=== PATIENT | male | born 1960 | race Caucasian/White ===

== ENCOUNTER 2024-02-01 09:57 | Emergency (ER) | payer OTHER, SELFPAY ==
[2024-02-01] VITALS (14 sets, daily range): BP systolic 97–179; BP diastolic 55–95; PULSE 72–96; RESP 14–20; TEMP 36.4–37; O2SAT 94–98; BMI 30.2
--- NOTE | 2024-02-01 10:10 | CT_ITS ---
CT RIGHT LOWER EXTREMITY WITH 3-D IMAGING CLINICAL INDICATION: right posterior thigh trauma TECHNIQUE: Axial CT images of the RIGHT lower extremity was performed with IV contrast material. Coronal and sagittal reformats were provided. RADIATION DOSAGE (If Supplied By Facility): CTDIvol = ( 15.44 ) mGy, DLP = ( 1371.28 ) mGycm COMPARISON: No relevant prior comparison study available FINDINGS: Bones: Osseous structures are normal without evidence of fracture or dislocation. No lytic or blastic osseous masses. Soft Tissues: There is a 4.8 cm x 6.3 cm x 6.6 cm soft tissue laceration/ulceration posterior to the biceps femoris long head muscle. There is evidence of soft tissue swelling and air within the biceps femoris muscle. This may be either due to infection versus air arising from the overlying laceration. There is also evidence of the fluid surrounding the medial adductor muscle group. There is evidence of subcutaneous soft tissue prominence with skin thickening. No radiopaque foreign body is seen at this time. CT/Extremity Lower WITH Contrast IMPRESSION: Large area of soft tissue laceration/ULCERATION posterior to the biceps femoris long head muscle with air within the soft tissues suggestive of possible infection versus communication with the overlying skin. Small amount of fluid collection surrounding the medial adductor muscle group. Diffuse increased edema in the subcutaneous fat and overlying skin thickening. No bony abnormality is seen at this time. No radiopaque foreign body is present. Electronically Signed: Keven Altman MD at 13:54 EDT ,
--- NOTE | 2024-02-01 10:12 | EX.ED.GENINJ ---
HPI History of Present Illness Chief Complaint: Laceration Informant: patient Onset/Context/Timing Onset: Days (8 days) Narrative Narrative: Susanne mendoza presents via private vehicle secondary to right lower extremity laceration that occurred 8 days ago. 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 He suffered extensive injuries to his right lower extremity. Multiple lacerations on the lower portion of the right leg are healing. Patient has a large laceration to the posterior right thigh that he presents today for. He states his family has been caring for it and took pictures of the wound. They sent it to a friend who is a doctor in [place] and they recommended he come in as there is exposed muscle. Patient states he has not been up ambulating on his leg since the time of injury. He denies having fever or chills. He does not take any medications on a regular basis. PFSH PFS Medical History no medical history no medical history Home Medications NK 02/01/24 [History Last Taken Unknown] Allergy/AdvReac Type Severity Reaction Status Date / Time No Known Allergies Allergy Verified 02/01/24 10:07 Surgical History Hx of hernia repair Social History Smoking Status: Never smoker ROS ROS ED Constitutional Constitutional ED: Denies chills or fever(s) Eyes Eyes: Denies change in vision ENT ENT ED: Denies rhinorrhea or sore throat Cardiovascular Cardiovascular: Denies chest pain or palpitations Respiratory/Chest Respiratory/Chest: Denies cough or dyspnea Gastrointestinal Gastrointestinal: Denies abdominal pain, nausea or vomiting Genitourinary Genitourinary ED: Denies dysuria Musculoskeletal Musculoskeletal: Reports extremity pain; Denies back pain Integumentary Reports other Details: Right lower extremity lacerations ; Denies Abrasions or rash Neurologic Neurologic: Denies headache(s), paresthesias or weakness Allergic/Immunologic Allergic/Immunologic ED: Denies lip swelling or urticaria EXAM Physical Exam Const Vital Signs: 02/01/24 09:59 02/01/24 10:04 02/01/24 11:04 Temperature 97.5 F L 97.5 F L 98 F Temperature Source Temporal Temporal Oral Pulse Rate 84 84 77 Respiratory Rate 16 16 18 Blood Pressure 129/85 H 129/85 H 125/77 H Blood Pressure Mean 99 99 93 Pulse Ox 95 94 97 Oxygen Delivery Method Room Air Room Air 02/01/24 11:57 02/01/24 13:00 02/01/24 14:00 Temperature 98.5 F 98.2 F 98.2 F Temperature Source Oral Temporal Oral Pulse Rate 72 81 82 Respiratory Rate 14 16 16 Blood Pressure 112/67 111/80 179/76 H Blood Pressure Mean 82 90 110 Pulse Ox 97 97 98 Oxygen Delivery Method Room Air Room Air Room Air 02/01/24 15:00 02/01/24 16:00 02/01/24 17:00 Temperature 98 F 98.3 F 98.1 F Temperature Source Oral Temporal Tympanic Pulse Rate 77 76 75 Respiratory Rate 18 16 20 H Blood Pressure 102/56 L 105/66 97/55 L Blood Pressure Mean 71 79 69 Pulse Ox 97 98 95 Oxygen Delivery Method Room Air Room Air Positive well nourished and well developed General Appearance ED: well developed HEENT atraumatic Eyes EOMs intact bilaterally Chest Wall inspection of chest normal and palpation of chest normal Resp normal respiratory effort and clear to auscultation bilaterally Cardio regular rhythm Rate: regular rate GI non-tender Palpation: soft Back/Spine normal to inspection Extremity Extremity Narrative: 12 x 7 cm gaping wound to the posterior right thigh with exposed muscle. Slight yellow-tinged discharge noted around the wound borders. No surrounding cellulitis. Over the lower portion of the right lower extremity there is healing abrasions and wounds with no sign of infection. Patient able to wiggle toes with strong distal pulses. Normal sensation noted. Neuro oriented x3 MDM MDM MDM Narrative Medical decision making narrative: IV line established. Labwork obtained to evaluate for leukocytosis, anemia, and electrolyte derangement. Blood and wound culture ordered. CT imaging of the right lower extremity will be obtained to evaluate the depth of injury and evaluate for any fluid collections. History & Record Review Discussion w/independent historian: Patient and Family Lab Data Attestation: I reviewed the patient's lab results. Labs: Laboratory Results - last 24 hr 02/01/24 10:10 WBC 8.6 RBC 4.65 Hgb 13.0 Hct 39.1 L MCV 84.1 MCH 28.0 MCHC 33.2 RDW Std Deviation 39.4 RDW Coeff of Vicki 12.9 Plt Count 342 MPV 9.4 Immature Gran % (Auto) 1.400 H Neut % (Auto) 63.9 Lymph % (Auto) 23.4 Anson % (Auto) 8.7 Eos % (Auto) 1.9 Baso % (Auto) 0.7 Absolute Neuts (auto) 5.5 Absolute Lymphs (auto) 2.02 Nucleated RBC % 0 PT 13.9 INR 1.1 APTT 27.7 Sodium 138 Potassium 4.3 Chloride 107 Carbon Dioxide 27.0 Anion Gap 4 L BUN 17 Creatinine 0.80 Estim Creat Clear Calc 101.76 Est GFR (MDRD) Af Amer 125 Est GFR (MDRD) Non-Af 103 BUN/Creatinine Ratio 21.3 H Glucose 112 H Lactic Acid 1.0 Calcium 9.1 Radiography Diagnostic Testing: Clinical Impression(s) from Imaging Studies Lower Extremity CT 02/01/24 10:10 IMPRESSION: Large area of soft tissue laceration/ULCERATION posterior to the biceps femoris long head muscle with air within the soft tissues suggestive of possible infection versus communication with the overlying skin. Small amount of fluid collection surrounding the medial adductor muscle group. Diffuse increased edema in the subcutaneous fat and overlying skin thickening. No bony abnormality is seen at this time. No radiopaque foreign body is present. Electronically Signed: Keven Altman MD at 13:54 EDT , Treatment and Re-Evaluation Narrative: White blood cell count is normal at 8.6 with 63% neutrophils. Hemoglobin is 13.0. Coags are unremarkable. Chemistry studies are normal. Lactic acid is normal at 1.0. CT scan of the right lower extremity with IV contrast is obtained. There is a large area of soft tissue laceration/ulceration posterior to the biceps for Avni long head muscle with air within the soft tissues suggestive of possible infection versus communication with overlying skin. Small amount of fluid collection is noted surrounding the medial adductor muscle group. Diffuse increased edema in the subcutaneous fat and overlying skin thickening. No radiopaque foreign body is present. Wound culture was obtained. Initial Gram stain reveals 3+ gram-positive cocci, 1+ gram-positive rods, 1+ white blood cells, no epithelial cells. In light of this patient is given a dose of Zosyn and vancomycin. I spoke with plastics. Dr. Ohara came to the emergency room and reviewed his images. There is air tracking into the muscle. She is concerned about this as well as possible muscle necrosis and does feel patient should be seen at a larger facility. [facility] does not have appropriate consultants available today and [facility] is not taking transfers. Family's next request was to go to [place]. Patient has been accepted in transfer to [facility]. Discharge Plan Triage Chief Complaint: Laceration ED Provider: Danni Butler Dx/Rx/DC Orders Clinical Impression: Laceration of leg Prescriptions: No Action NK Primary Care Provider: Care Physician,Sue Primary Referrals: NOT,DEFINED [Non-Staff] -
[2024-02-01 10:49] LABS: Absolute Lymphocyte Count 2.02 X10^3/uL (0.83-4.51); Absolute Neutrophil Count 5.5 X10^3/uL (2.0-7.7); Basophil# 0.06 X10^3/uL; Basophil% 0.7 % (0-1); Eosinophil# 0.16 X10^3/uL; Eosinophils% 1.9 % (0-5); Hematocrit 39.1 % (40-54); Lymphocyte # 2.02 X10^3/ul (0.83-4.51); Lymphocyte % 23.4 % (19-41); Mean Corp Hgb Conc 33.2 g/dL (32-36); Mean Corpuscular Volume 84.1 fL (80-94); Mean Platelet Vol. 9.4 fl (6.2-12.0); Monocyte# 0.75 X10^3/uL; Monocyte% 8.7 % (0-10); NRBC Flagged by Analyzer 0 % (0-5); Neutrophil # 5.51 X10^3/uL (2.7-7.7); Neutrophil % 63.9 % (47-70); Platelet Count 342 K/mm3 (150-450); RBC Distribution Width CV 12.9 % (11.6-14.6); RBC Distribution Width SD 39.4 fl (35.1-43.9); Red Blood Count 4.65 M/mm3 (4.6-6.2); White Blood Count 8.6 K/mm3 (4.4-11.0)
[2024-02-01 10:58] LABS: International Normalized Ratio 1.1; Prothrombin Time (Protime)PT. 13.9 SECONDS (11.7-14.9)
[2024-02-01 10:59] LABS: Partial Thromboplast Time 27.7 Seconds (24.1-36.2)
[2024-02-01 11:04] LABS: Anion Gap 4 (5-15); BUN 17 mg/dL (7-18); BUN/Creat Ratio 21.3 RATIO (10-20); Calcium,Total 9.1 mg/dL (8.5-10.1); Chloride 107 mmol/L (98-107); EST Glomerular Filtration Rate 103 mL/min (>60); Est Glom Filt Rate - Afr Amer 125 mL/min (>60); Estimated Creatinine Clearance 101.76 ml/min; Glucose 112 mg/dL (74-106); Potassium 4.3 mmol/L (3.5-5.1); Sodium Level 138 mmol/L (136-145)
[2024-02-01] MEDS: 0.9% Normal Saline (1000mL) 1,000 ML 150 ML IV (11:25)
[2024-02-01] MEDS: Piperacil/Tazobactam 3.375 GM in 0.9% Normal Saline (50mL MB+) 50 ML IV (15:22)
[2024-02-01] MEDS: Vancomycin HCl 1,250 MG in 0.9% Normal Saline (250mL Bag) 250 ML 167 MG IV (16:05)
--- NOTE | 2024-02-01 16:56 | NURSING ---
CALLING [facility] FOR TRANSFER
--- NOTE | 2024-02-01 17:36 | NURSING ---
CALLED [facility] , ETA IS 3 HRS
== END 2024-02-01 21:18 | disposition short-term general hospital (02) ==
PROVIDERS: Emergency Provider Emergency Medicine; Visit Provider Emergency Medicine
DX: S81.811A Laceration without foreign body, right lower leg, initial encounter (principal); X58.XXXA Exposure to other specified factors, initial encounter
CPT/HCPCS: 73701; 80048; 83605; 85025; 85610; 85730; 87040; 87070; 87077; 87186; 87205; 96361; 96365; 96366; 96367; 99284; J7050; Q9967; A4216